=== PATIENT | male | born 1945 | race Caucasian/White ===

== ENCOUNTER 2018-01-26 18:34 | Inpatient (IN) | payer MEDICARE ==
[~2018-01-26] VITALS: Ht 182.9 cm; Wt 122.0 kg
[2018-01-26] MEDS ORDERED: PHENAZOPYRIDINE 200 MG TABLET PO ONE (19:00)
[2018-01-26 19:22] LABS: BASOPHILS # (AUTO) 0.01 x10^3/uL (0-0.1); BASOPHILS % (AUTO) 0 % (0-1); EOSINOPHILS # (AUTO) 0.01 x10^3/uL (0-0.4); EOSINOPHILS % (AUTO) 0 % (1-7); LYMPHOCYTES # (AUTO) 0.82 x10^3/uL (1-3.4); LYMPHOCYTES % (AUTO) 6 % (22-44); MD NO; MEAN CORPUSCULAR HEMOGLOBIN 28.7 pg (27.5-34.5); MEAN CORPUSCULAR VOLUME 84.4 fL (81-97); MEAN PLATELET VOLUME 8.1 fL (7.4-10.4); MONOCYTES # (AUTO) 0.85 x10^3/uL (0.2-0.8); MONOCYTES % (AUTO) 6 % (2-9); NEUTROPHILS # (AUTO) 12.44 x10^3/uL (1.8-6.8); NEUTROPHILS % (AUTO) 88 % (42-75); PLATELET COUNT 212 x10^3/uL (130-400); RED BLOOD COUNT 4.96 x10^6/uL (4.38-5.82)
[2018-01-26 19:29] LABS: ALBUMIN 3.5 g/dL (3.4-5.0); ANION GAP 11 mmol/L (5-15); CALCIUM 8.9 mg/dL (8.5-10.1); CHLORIDE 107 mmol/L (98-107); CREATININE 1.18 mg/dL (0.7-1.3)
[2018-01-26] MEDS ORDERED: POTASSIUM CL PO (19:55)
[2018-01-26] MEDS ORDERED: metoprolol PO (19:55)
[2018-01-26] MEDS ORDERED: tamsulosin PO (19:55)
[2018-01-26] MEDS ORDERED: ASPI-515 PO (19:55)
[2018-01-26] MEDS ORDERED: lasix PO (19:55)
[2018-01-26] MEDS ORDERED: losartan/hctz PO (19:55)
[2018-01-26 19:58] LABS: MICROSCOPIC AUTO
[2018-01-26] MEDS ORDERED: PHENAZOPYRIDINE 200 MG TABLET ONE (19:59)
[2018-01-26 20:01] LABS: CULTURE INDICATED? YES
[2018-01-26] MEDS ORDERED: CEFTRIAXONE PMX 1GM/50ML 50 ML IV ONE (20:30)
[2018-01-26] MEDS ORDERED: ACETAMINOPHEN 325 MG TABLET PO PRN (20:30)
[2018-01-26] MEDS ORDERED: ONDANSETRON 2MG/ML, 2ML IVPush PRN (20:30)
[2018-01-26] MEDS ORDERED: CEFTRIAXONE PMX 1GM/50ML 50 ML IV SCH (20:30)
[2018-01-26] MEDS ORDERED: POLYETHYLENE GLYCOL 17 GM PACKET PO PRN (20:30)
[2018-01-26 21:41] VITALS: BP 150/68
[2018-01-26] MEDS ORDERED: LOSA50TA7 PO (21:47)
[2018-01-26] MEDS ORDERED: METO25TA35 PO (21:47)
[2018-01-26] MEDS ORDERED: METO50TA82 PO (21:47)
[2018-01-26] MEDS: SODIUM CHLORIDE 0.9% 1,000 ML IV SCH (22:26)
[2018-01-26] MEDS: CEFTRIAXONE PMX 1GM/50ML 50 ML IV SCH (22:27)
[2018-01-26] MEDS: LOSARTAN 50MG TABLET PO SCH (22:28)
[2018-01-26] MEDS: ASPIRIN 81 MG TABLET EC PO SCH (22:28)
[2018-01-26] MEDS: METOPROLOL TARTRATE 25 MG TABLET PO SCH (22:28)
[2018-01-27 01:05] VITALS: BP 154/77
[2018-01-27 05:55] LABS: MEAN CORPUSCULAR HEMOGLOBIN 28.5 pg (27.5-34.5); MEAN CORPUSCULAR HGB CONC 33.3 g/dL (33.2-36.2); MEAN CORPUSCULAR VOLUME 85.7 fL (81-97); MEAN PLATELET VOLUME 8.4 fL (7.4-10.4); PLATELET COUNT 188 x10^3/uL (130-400); RED BLOOD COUNT 4.68 x10^6/uL (4.38-5.82)
[2018-01-27 06:00] LABS: ANION GAP 9 mmol/L (5-15); CALCIUM 8.3 mg/dL (8.5-10.1); CHLORIDE 107 mmol/L (98-107)
[2018-01-27 06:02] LABS: CREATININE 1.05 mg/dL (0.7-1.3)
[2018-01-27 06:29] LABS: MD YES
[2018-01-27 06:31] LABS: BAND#(MANUAL) 1.59 x10^3/uL; BANDS%(MANUAL) 10 % (0-7); LYMPH#(MANUAL) 1.43 x10^3/uL (1-3.4); LYMPHS% (MANUAL) 9 % (22-44); MONOS#(MANUAL) 0.32 x10^3/uL (0.3-2.7); MONOS% (MANUAL) 2 % (2-9); MYELOCYTES# (MANUAL) 0.16 x10^3/uL (0-0); MYELOCYTES% (MANUAL) 1 % (0-0); SEGS% (MANUAL) 78 % (42-75)
[2018-01-27 06:32] LABS: <PLATELET ESTIMATE> ADEQUATE; <RBC MORPHOLOGY> NORMAL; ANISOCYTOSIS 1+
[2018-01-27 06:33] LABS: LARGE PLATELETS 1+
[2018-01-27] MEDS: ONDANSETRON ODT 4 MG PO PRN ×2 (07:15→18:28)
[2018-01-27 08:02] VITALS: BP 131/71
[2018-01-27] MEDS ORDERED: CEFTRIAXONE PMX 1GM/50ML 50 ML IV SCH (08:30)
[2018-01-27] MEDS ORDERED: TAMSULOSIN 0.4 MG CAP.ER.24H PO SCH (09:00)
[2018-01-27 09:01] LABS: ALBUMIN 3.3 g/dL (3.4-5.0); ANION GAP 9 mmol/L (5-15); CALCIUM 8.6 mg/dL (8.5-10.1); CHLORIDE 107 mmol/L (98-107); CREATININE 1.12 mg/dL (0.7-1.3)
[2018-01-27 09:40] LABS: MEAN CORPUSCULAR HEMOGLOBIN 28.2 pg (27.5-34.5); MEAN CORPUSCULAR HGB CONC 33.5 g/dL (33.2-36.2); MEAN CORPUSCULAR VOLUME 84.2 fL (81-97); MEAN PLATELET VOLUME 8.4 fL (7.4-10.4); PLATELET COUNT 178 x10^3/uL (130-400); RED BLOOD COUNT 4.75 x10^6/uL (4.38-5.82); RED CELL DISTRIBUTION WIDTH 16.1 % (9.4-14.8)
[2018-01-27] MEDS: FUROSEMIDE 40 MG TABLET PO SCH ×2 (10:03→12:40)
[2018-01-27 10:05] LABS: MD YES
[2018-01-27 10:07] LABS: BAND#(MANUAL) 1.09 x10^3/uL; BANDS%(MANUAL) 7 % (0-7); BASOS#(MANUAL) 0.16 x10^3/uL (0-0.1); BASOS% (MANUAL) 1 % (0-1); LYMPH#(MANUAL) 0.78 x10^3/uL (1-3.4); LYMPHS% (MANUAL) 5 % (22-44); MONOS#(MANUAL) 0.93 x10^3/uL (0.3-2.7); MONOS% (MANUAL) 6 % (2-9); SEG#(MANUAL) 12.56 x10^3/uL (1.8-6.8); SEGS% (MANUAL) 81 % (42-75)
[2018-01-27 10:08] LABS: <PLATELET ESTIMATE> ADEQUATE; <PLT MORPHOLOGY> NORMAL PLT MORPH; ANISOCYTOSIS 1+; POLYCHROMASIA 1+
[2018-01-27] MEDS: ACETAMINOPHEN 500 MG TABLET PO PRN ×2 (10:08→18:29)
[2018-01-27] MEDS: CEFTRIAXONE PMX 1GM/50ML 50 ML IV SCH ×2 (10:09→22:13)
[2018-01-27] MEDS: SODIUM CHLORIDE 0.9% 1,000 ML IV SCH (12:39)
[2018-01-27] MEDS: POTASSIUM CHLORIDE 20 MEQ TAB.ER.PRT PO SCH (12:40)
[2018-01-27] MEDS: TAMSULOSIN 0.4 MG CAP.ER.24H PO SCH (12:40)
[2018-01-27 12:53] VITALS: BP 128/72
[2018-01-27 19:16] VITALS: BP 131/64
[2018-01-27] MEDS: LOSARTAN 50MG TABLET PO SCH (20:27)
[2018-01-27] MEDS: METOPROLOL TARTRATE 25 MG TABLET PO SCH (20:27)
[2018-01-27] MEDS: ASPIRIN 81 MG TABLET EC PO SCH (20:27)
[2018-01-28] MEDS: SODIUM CHLORIDE 0.9% 1,000 ML IV SCH (01:47)
[2018-01-28] MEDS: ACETAMINOPHEN 500 MG TABLET PO PRN ×2 (02:23→08:55)
[2018-01-28 03:11] VITALS: BP 133/71
[2018-01-28 07:02] VITALS: BP 127/75
[2018-01-28] MEDS ORDERED: PHENAZOPYRIDINE 200 MG TABLET PO ONE (08:30)
[2018-01-28] MEDS ORDERED: LEVOFLOXACIN 750 MG TABLET PO ONE (08:30)
[2018-01-28] MEDS ORDERED: SULF1TAB24 PO (08:31)
[2018-01-28] MEDS: POTASSIUM CHLORIDE 20 MEQ TAB.ER.PRT PO SCH (08:56)
[2018-01-28] MEDS: TAMSULOSIN 0.4 MG CAP.ER.24H PO SCH (08:57)
[2018-01-28] MEDS ORDERED: MAGNESIUM OXIDE 400 MG TABLET PO SCH (09:00)
[2018-01-28] MEDS ORDERED: NEUTRA PHOS K 250 MG TABLET PO SCH (09:00)
[2018-01-28] MEDS ORDERED: FUROSEMIDE 40 MG TABLET PO SCH (09:00)
[2018-01-28] MEDS: CEFTRIAXONE PMX 1GM/50ML 50 ML IV SCH (09:49)
== END 2018-01-28 10:23 | disposition home or self-care (01) | DRG 872 ==
LOC: ED 20:02 → SUATTDRO 20:24 → EDIP 20:25 → 3NE 21:37
PROVIDERS: ADMIT Hospitalist; ATTEND Hospitalist
PROC: 0T9B70Z Drainage of Bladder with Drainage Device, Via Natural or Artificial Opening (ICD-10-PCS; principal; 2018-01-26)
DX: A41.9 Sepsis, unspecified organism (principal); N39.0 Urinary tract infection, site not specified; N40.1 Benign prostatic hyperplasia with lower urinary tract symptoms; R33.8 Other retention of urine; E66.9 Obesity, unspecified; I10 Essential (primary) hypertension; I25.10 Atherosclerotic heart disease of native coronary artery without angina pectoris; Z95.5 Presence of coronary angioplasty implant and graft; Z98.1 Arthrodesis status; Z68.36 Body mass index [BMI] 36.0-36.9, adult
CPT/HCPCS: 36415; 51702; 80048; 81001; 82040; 83605; 83735; 84100; 84145; 85025; 87040; 87077; 87086; 87186; G0378; J0696; Q0162; J7030